=== PATIENT | male | born 1990 | race American Indian/Alaskan Native ===

== ENCOUNTER 2021-04-09 07:40 | Emergency (ER) | payer BC ==
[2021-04-09 08:23] VITALS: BP 113/68
[2021-04-09] MEDS ORDERED: IBUPROFEN 800 MG TAB PO ONE (08:59)
--- NOTE | 2021-04-09 09:14 | Emergency Department Report ---
ED Extremity Problem HPI - General Chief complaint: Extremity Injury, Lower Stated complaint: ANKLE INJURY Time Seen by Provider: 04/09/21 08:49 Source: patient Mode of arrival: Wheelchair Limitations: No Limitations - History of Present Illness Initial comments: 30-year-old male presents to ED with left foot pain. Patient states he twisted his foot while taking out the trash last night, accidentally stepping off of the curb. He reports some pain and swelling to the area. MD Complaint: extremity pain -: Last night Location: left, other (Foot) History of Same: No -: Yes arthralgia Radiation: none Severity scale (0 -10): 8 Quality: aching Consistency: intermittent Improves with: immobilization Worsens with: weight bearing, walking, palpation Associated Symptoms: denies other symptoms - Related Data Previous Rx's Medication Instructions Recorded Last Taken Type Naproxen [Naprosyn] 500 mg PO BID #20 tablet 04/09/21 Unknown Rx Allergies Allergy/AdvReac Type Severity Reaction Status Date / Time No Known Allergies Allergy Unverified 04/09/21 08:27 ED Review of Systems ROS: Stated complaint: ANKLE INJURY Other details as noted in HPI Comment: All other systems reviewed and negative Musculoskeletal: as per HPI Neurological: denies: weakness, numbness, paresthesias ED Past Medical Hx - Past Medical History Previous Medical History?: Yes Hx Asthma: Yes - Surgical History Past Surgical History?: No - Social History Smoking Status: Current Every Day Smoker Substance Use Type: Marijuana - Medications Home Medications: Home Medications Medication Instructions Recorded Confirmed Last Taken Type Naproxen [Naprosyn] 500 mg PO BID #20 tablet 04/09/21 Unknown Rx ED Physical Exam - General Limitations: No Limitations General appearance: alert, in no apparent distress - Head Head exam: Present: atraumatic - Eye Eye exam: Present: normal appearance, EOMI - ENT ENT exam: Present: mucous membranes moist - Neck Neck exam: Present: normal inspection - Respiratory Respiratory exam: Present: normal lung sounds bilaterally. Absent: respiratory distress - Cardiovascular Cardiovascular Exam: Present: regular rate, normal rhythm - GI/Abdominal GI/Abdominal exam: Absent: distended - Extremities Exam Extremities exam: Present: other (Tenderness and mild swelling to the left lateral foot, no deformity noted; sensation intact; patient able to flex and extend all 5 toes) - Neurological Exam Neurological exam: Present: alert, oriented X3 - Psychiatric Psychiatric exam: Present: normal affect, normal mood - Skin Skin exam: Present: warm, dry, intact, normal color ED Course Vital Signs 04/09/21 04/09/21 08:13 09:08 Temperature 98.4 F Pulse Rate 76 Respiratory 16 17 Rate Blood Pressure 113/68 O2 Sat by Pulse 100 Oximetry ED Medical Decision Making - Radiology Data Radiology results: report reviewed, image reviewed - Differential Diagnosis Fracture, sprain Critical care attestation.: If time is entered above; I have spent that time in minutes in the direct care of this critically ill patient, excluding procedure time. ED Disposition Clinical Impression: Sprain of left foot Disposition: HOME / SELF CARE / HOMELESS Is pt being admited?: No Condition: Stable Instructions: Elastic Bandage and RICE Therapy, How to Use Cold Therapy, [id number], Foot Sprain Referrals: [facility] [Provider Group] - 3-5 Days JUANITA LILLY MD [Staff Physician] - 3-5 Days Forms: Work/School Release Form(ED) Time of Disposition: 09:49
--- NOTE | 2021-04-09 09:39 | XRay Report ---
XR foot 3+V LT INDICATION / CLINICAL INFORMATION: pain, injury. COMPARISON: None available. FINDINGS: BONES/JOINT(S): No acute fracture or subluxation. No significant degenerative changes. SOFT TISSUES: No significant abnormality. ADDITIONAL FINDINGS: None. Signer Name: Stephon Stover MD Signed: 04/09/2021 9:35 AM Workstation Name: [id number]
== END 2021-04-09 10:03 | disposition home or self-care (01) ==
LOC: ED 07:40
DX: S93.692A Other sprain of left foot, initial encounter (principal); F17.200 Nicotine dependence, unspecified, uncomplicated; J45.909 Unspecified asthma, uncomplicated; X50.1XXA Overexertion from prolonged static or awkward postures, initial encounter; Y93.89 Activity, other specified; Y92.89 Other specified places as the place of occurrence of the external cause; Y99.8 Other external cause status
CPT/HCPCS: 99283

== ENCOUNTER 2022-01-05 08:38 | Emergency (ER) | payer SELFPAY ==
[2022-01-05 08:53] VITALS: BP 122/61
== END 2022-01-06 07:56 | disposition left against medical advice (07) ==
LOC: ED 08:38
DX: M54.9 Dorsalgia, unspecified (principal); Z53.21 Procedure and treatment not carried out due to patient leaving prior to being seen by health care provider